=== PATIENT | male | born 1970 | race Caucasian/White ===

== ENCOUNTER 2022-02-01 12:06 | Emergency (ER) | payer SELFPAY ==
--- NOTE | 2022-02-01 13:14 | HMH.EDUTC ---
[facility] [place] Clinical Impression: Acute bronchitis Qualifiers: Bronchitis organism: unspecified organism Qualified Code(s): J20.9 - Acute bronchitis, unspecified Sinusitis Qualifiers: Sinusitis location: unspecified location Chronicity: acute Recurrence: non-recurrent Qualified Code(s): J01.90 - Acute sinusitis, unspecified Disposition: Home, Self-Care Condition on Discharge: Good Instructions: Acute Bronchitis, DI for Sinusitis, DI for Acute Bronchitis Additional Instructions: Drink plenty of fluids. Take tylenol or ibuprofen for pain or fever. Take the medications as directed. Follow up with your regular doctor. GO TO THE ER FOR ANY WORSENING SYMPTOMS Quarantine until you know the results of your covid-19 test. Notify your school or workplace of your results and follow their instructions regarding return to work/school. Don't start the oral steroids until tomorrow, since you had the shot here today. Prescriptions: Benzonatate [Benzonatate 100mg cap] 100 mg PO TIDP PRN #30 cap PRN Reason: Cough Transmission Status: Received by [facility] methylPREDNISolone [Medrol] 4 mg PO DIRECTED 6 Days #21 packet Transmission Status: Received by [facility] Azithromycin [Z-Mahamed 250mg Tab*] 250 mg PO UD DOSE PK #6 tab Transmission Status: Received by [facility] Referrals: Casey Rojas MD [Primary Care Provider] - Forms: Work/School Release Time of Disposition: 13:42 Medical Decision Making - Medical Records Medical records reviewed: No: I reviewed the patient's medical records. - [place]an Inquiry Pt receiving controlled substance: No Vital Signs: 02/01/22 13:15 02/01/22 14:06 Temperature 98.9 F 98.9 F Temperature Source Oral Pulse Rate 98 H Pulse Rate [Left] 87 Respiratory Rate 16 16 Blood Pressure 108/69 L Blood Pressure [Right Arm] 108/69 L Blood Pressure Mean [Right Arm] 82 02 Sat by Pulse Oximetry 96 Orders (Tests/Meds): ED MEDICATIONS Discontinued Medications Generic Name Dose Route Start Last Admin Trade Name Freq PRN Reason Stop Dose Admin Ceftriaxone Sodium 1 gm 02/01/22 13:40 02/01/22 13:56 Ceftriaxone 1gm Vial IM 02/01/22 13:41 1 gm ONCE ONE Administration Lidocaine HCl 0 ml 02/01/22 13:40 02/01/22 13:56 Lidocaine 1% 5ml Pf Vial IM 02/01/22 13:41 2 ml ONCE ONE Administration Methylprednisolone Sodium Succinate 125 mg 02/01/22 13:40 02/01/22 13:56 Methylprednisolone Sod Succ 125mg Vial IM 02/01/22 13:41 125 mg ONCE ONE [place] [facility] [place] - General Stated complaint: chest congestion, sore throat, cough, fever Time Seen by Provider: 02/01/22 13:14 - History of Present Illness Provider Complaint: He states that for the past 1 week he has had chest congestion, cough, sinus congestion, chills and low grade fever. - Related Data Previous Rx's Medication Instructions Recorded Azithromycin [Z-Mahamed 250mg Tab*] 250 mg PO UD DOSE PK #6 tab 02/01/22 Benzonatate [Benzonatate 100mg 100 mg PO TIDP PRN #30 cap 02/01/22 cap] methylPREDNISolone [Medrol] 4 mg PO DIRECTED 6 Days #21 02/01/22 packet Allergies Allergy/AdvReac Type Severity Reaction Status Date / Time No Known Allergies Allergy Verified 04/15/21 17:16 [facility] History - Hepatitis A Screen Attestation statement:: This patient has been screened for Hepatitis A risk factors. I have reviewed the patient's past medical history: Yes Medical History: Denies:: Gastrointestinal Bleed, Ulcer Other Surgeries: Yes: No Previous Surgery - Social History Smoking Status: Current every day smoker Tobacco Type: cigarettes # Packs/Day (cigarettes): 1 Alcohol Intake: never Alcohol Intake Frequency:: holidays/special occasions only Occupational Status: employed Housing: house Household Members: significant other Family Hx:: Diabetes, Thyroid Disorder ROS Obtained: Yes All syste
[2022-02-01 13:15] VITALS: BP 108/69; PULSE 87; RESP 16; TEMP 37.2; O2SAT 96; BMI 28.7
[2022-02-01 14:06] VITALS: BP 108/69; PULSE 98; RESP 16; TEMP 37.2
== END 2022-02-01 14:06 | disposition home or self-care (01) ==
PROVIDERS: Emergency Provider Nurse Practitioner Family; PCP Family Medicine
DX: J20.9 Acute bronchitis, unspecified (principal); J01.90 Acute sinusitis, unspecified; F17.210 Nicotine dependence, cigarettes, uncomplicated; Z20.822 Contact with and (suspected) exposure to COVID-19; Z83.3 Family history of diabetes mellitus; Z83.49 Family history of other endocrine, nutritional and metabolic diseases; Z79.52 Long term (current) use of systemic steroids
CPT/HCPCS: 96372; 99213; C9803; G0463; J0696; U0003; U0005